=== PATIENT | male | born 1955 | race Caucasian/White ===

== ENCOUNTER 2016-10-23 07:30 | Day surgery (SDC) | payer MEDICARE ==
--- NOTE | ~2016-10-23 | EGD ---
EGD REPORT [facility] [address] [address] NAME: GASTON HOOD : [birth year] STATUS : REG [facility]#: [id number] AGE: 61 ADM/REG DATE : 10/23/16 MR#: [id number] REPORT SERV DATE: 10/23/16 DICTATED BY: ERIC LESLIE DATE: 10/23/16 REPORT STATUS : Draft TRANSCRIBED BY: [employer] DATE: 10/23/16 [facility] Patient Name: Gaston Hood. Date of : 1955 Attending MD: ERIC LESLIE, Procedure Date No Time: 10/23/2016 Procedure: Upper GI endoscopy Indications: Ortez's high grade dysplasia Referring MD: NERIS MTZ Medicines: Monitored Anesthesia Care Complications: No immediate complications. Estimated blood loss: None. Procedure: Pre-Anesthesia Assessment: - ASA Grade Assessment: III - A patient with severe systemic disease. After obtaining informed consent, the endoscope was passed under direct vision. Throughout the procedure, the patient's blood pressure, pulse, and oxygen saturations were monitored continuously. The GIF [id number] was introduced through the mouth, and advanced to the second part of duodenum. The upper GI endoscopy was accomplished without difficulty. The patient tolerated the procedure well. Findings: The Z-line was irregular. Circumferential radiofrequency ablation of Ortez's esophagus was performed, using the Halo 360 catheter and balloon-based endoscopic ablation system. With the endoscope in place, the position and extent of the Ortez's mucosa and the anatomic landmarks were noted. The endoscope was introduced in a [id number] manner with the ablation catheter. The balloon ablation catheter was positioned under direct visualization so that the proximal edge of the electrode was slightly above the proximal edge of the Ortez's mucosa. The balloon was automatically inflated and energy was applied at 10 J/cm2. The ablation catheter and guidewire were removed and the balloon was cleaned. The ablation zone was then cleaned of overlying coagulative debris using irrigation and suction via the endoscope and a cleaning cap. The ablation catheter was positioned under direct visualization so that the proximal edge of the electrode was at the proximal edge of the ablation zone. Reinflation and a second round of ablation was performed with the application of 10 J/cm2 to re-treat the Ortez's epithelium already treated with the first round of ablation. The ablation catheter and guidewire were then removed. The areas of the esophagus where Ortez's mucosa had been ablated were then carefully examined with the endoscope. Areas of Ortez's esophagus were completely treated. The stomach was normal. EGD REPORT [address] [address] NAME: GASTON HOOD : [birth year] STATUS : [facility]#: [id number] AGE: 61 ADM/REG DATE : 10/23/16 MR#: [id number] REPORT SERV DATE: 10/23/16 DICTATED BY: REIC LESLIE DATE: 10/23/16 REPORT STATUS : Draft TRANSCRIBED BY: [employer] DATE: 10/23/16 The examined duodenum was normal. The cardia and gastric fundus were normal on retroflexion. Impression: - Z-line irregular,. Treated with radiofrequency ablation. - Normal stomach. - Normal examined duodenum. Recommendation: - Return to previous diet. - Continue present medications. - Repeat the upper endoscopy in 3 months for retreatment. - Use Protonix (pantoprazole) 40 mg PO BID. Procedure Code(s): --- Professional --- 91781, Esophagogastroduodenoscopy, flexible, transoral; with ablation of tumor(s), polyp(s), or other lesion(s) (includes pre- and post-dilation and guide wire passage, when performed) Diagnosis Code(s): --- Professional --- K22.8, Other specified diseases of esophagus K22.711, Ortez's esophagus with high grade dysplasia CPT copyright 2013 [employer]. All rights reserved. The codes documented in this report are preliminary and upon weapons specialist review may be revised to meet current compliance requirements. ERIC LESLIE, 10/23/2016 9:43 AM Number of Addenda: 0 Note Initiated On: 10/23/2016 9:12 AM Scope Withdrawal Time 0 hours 0 minutes 0 seconds [address] [place] [id number]
[~2016-10-23 07:30] MED LIST: ASA5GR PO; ASAB PO; AVODART PO; CAT1 PO; CELEBREX50 MG PO; COREG3 PO; CYMBALTA60 PO; DURA50 TOP; FLEX PO; FLOMAX4 PO; FORTAMET500 MG PO; L20 PO; LEXAPRO10 PO; LOP100 PO; LOTREL1 CA4 PO; LYRICA50 PO; MAGOX4 PO; MEVACOR PO; MEVACOR40 MG PO; NEUR600 PO; NEUR800 PO; OXYCON20 PO; PLAVIX PO; PRIN10 PO; PROTONIX PO; REQUIP1 PO; SOMA PO; VICODIN HP1 TAB PO; VITAMIN D1000 UNI1 PO
== END 2016-10-23 23:59 | disposition home or self-care (01) ==
LOC: DMU 07:30
PROVIDERS: Internal Medicine Gastroenterology
PROC: 0D558ZZ Destruction of Esophagus, Via Natural or Artificial Opening Endoscopic (ICD-10-PCS; principal; 2016-10-23 09:30)
DX: K22.711 Barrett's esophagus with high grade dysplasia (principal); K22.8 Other specified diseases of esophagus; I10 Essential (primary) hypertension; E11.9 Type 2 diabetes mellitus without complications; Z88.8 Allergy status to other drugs, medicaments and biological substances; Z79.82 Long term (current) use of aspirin; Z79.891 Long term (current) use of opiate analgesic; Z79.899 Other long term (current) drug therapy; Z90.89 Acquired absence of other organs
CPT/HCPCS: 82962; C1725